=== PATIENT | male | born 1960 | race Caucasian/White ===

== ENCOUNTER 2023-07-10 04:32 | Day surgery (SDC) | payer OTHER ==
[2023-07-04 12:51] VITALS: BMI 24.4
[2023-07-10] MEDS ORDERED: SIMETHICONE 40 MG/0.6 ML BOTTLE ONE (07:57)
[2023-07-10] MEDS ORDERED: EPINEPHrine 1:10,000 (P-F SYR) 1 MG/10 ML DISP.SYRIN SQ ONE (08:45)
[2023-07-10] MEDS ORDERED: EPINEPHrine 1:10,000 (P-F SYR) 1 MG/10 ML DISP.SYRIN IVPUSH ONE (08:45)
[2023-07-10 09:22] VITALS: RESP 18; TEMP 97.9
[2023-07-10 10:04] VITALS: BP 102/65; PULSE 61
== END 2023-07-10 09:55 | disposition home or self-care (01) ==
LOC: JASU-ENDO 04:32
PROVIDERS: ATTEND Internal Medicine Gastroenterology
PROC: 0DBL8ZX Excision of Transverse Colon, Via Natural or Artificial Opening Endoscopic, Diagnostic (ICD-10-PCS; 2023-07-10)
PROC: 0DBN8ZX Excision of Sigmoid Colon, Via Natural or Artificial Opening Endoscopic, Diagnostic (ICD-10-PCS; 2023-07-10)
PROC: 0DBQ8ZX Excision of Anus, Via Natural or Artificial Opening Endoscopic, Diagnostic (ICD-10-PCS; principal; 2023-07-10 08:00)
DX: K57.90 Diverticulosis of intestine, part unspecified, without perforation or abscess without bleeding (principal); D12.3 Benign neoplasm of transverse colon; K64.8 Other hemorrhoids; K64.4 Residual hemorrhoidal skin tags
CPT/HCPCS: 88305-TC

== ENCOUNTER 2023-10-08 04:52 | Inpatient (IN) | payer OTHER ==
[2023-10-04 10:13] VITALS: BMI 25.6
[2023-10-08] MEDS ORDERED: ceFAZolin SODIUM 1 GM VIAL ONE (06:51)
[2023-10-08] MEDS ORDERED: INDOCYANINE GREEN 25 MG/10 ML VIAL IVPUSH ONE (07:10)
[2023-10-08] MEDS ORDERED: BUPIVACAINE HCL/PF 0.25% (2.5MG/ML) 10 ML VIAL ONE (07:11)
[2023-10-08] MEDS ORDERED: cefOXitin SODIUM 2 GM VIAL (RESTRICTED TO ID) IVPB ONE (07:11)
[2023-10-08] MEDS ORDERED: HEPARIN NA (PORCINE) 5,000 UNITS/ML 1ML VIAL ONE (07:11)
[2023-10-08] MEDS ORDERED: ROCURONIUM BROMIDE 50 MG/5 ML SYRINGE ONE ×3 (08:05→13:33)
[2023-10-08] MEDS ORDERED: MIDAZOLAM HCL 2 MG/2 ML SINGLE DOSE VIAL ONE (08:05)
[2023-10-08] MEDS ORDERED: PROPOFOL 20 ML ONE ×2 (08:05→13:32)
[2023-10-08] MEDS ORDERED: FENTANYL CITRATE/PF 50 MCG/ML VIAL ONE ×6 (08:05→18:25)
[2023-10-08] MEDS: cefOXitin SODIUM 2 GM VIAL (RESTRICTED TO ID) IVPB ONE (08:35)
[2023-10-08] MEDS: INDOCYANINE GREEN 25 MG/10 ML VIAL IVPUSH ONE (08:43)
[2023-10-08] MEDS: BUPIVACAINE HCL/PF 0.25% (2.5MG/ML) 10 ML VIAL IJ ONE (09:17)
[2023-10-08] MEDS ORDERED: HYDROmorphone HCl 2 MG/ML VIAL ONE (15:35)
[2023-10-08] MEDS ORDERED: MEPERIDINE HCL 25 MG/ML VIAL ONE (16:37)
[2023-10-08] MEDS: MEPERIDINE HCL 25 MG/ML VIAL IVPUSH ONE (16:55)
[2023-10-08] MEDS: ACETAMINOPHEN 1000 MG/100 ML BAG IVPB SCH (17:26)
[2023-10-08] MEDS: LACTATED RINGERS SOLUTION 1,000 ML IV SCH (17:47)
[2023-10-08] MEDS: CEFAZOLIN SODIUM 2 GM in DEXTROSE 5%-WATER 100 ML IVPB ONE (17:48)
[2023-10-08] MEDS ORDERED: PIPERACILLIN/TAZOB 3.375 GM 3.375 GM in DEXTROSE 5%-WATER - 50 ML IVPB SCH (20:00)
[2023-10-08] MEDS: PIPERACILLIN/TAZOB 3.375 GM 3.375 GM in DEXTROSE 5%-WATER - 50 ML IVPB SCH (21:08)
[2023-10-08] MEDS: oxyCODONE HCL 5 MG TABLET PO PRN (21:14)
[2023-10-08] MEDS: ONDANSETRON 4 MG/2 ML VIAL IVPUSH ONE (22:27)
[2023-10-08] MEDS: KETOROLAC TROMETHAMINE 30 MG/1 ML VIAL IVPUSH PRN (23:01)
[2023-10-09] MEDS: oxyCODONE HCL 5 MG TABLET PO PRN (01:15)
[2023-10-09 08:19] LABS: HEMATOCRIT 36.5 % (35.4-49); HEMOGLOBIN 12.9 GM/dL (11.7-16.9); MCH 31.3 pg (25.7-33.7); MCHC 35.3 g/dl (32.0-35.9); MEAN CELL VOLUME 88.7 fl (80-96); MEAN PLT VOLUME 7.6 fl (7.5-11.1); PLATELET COUNT 143 10^3/uL (134-434); RBC 4.11 M/mm3 (4.00-5.60); RDW 12.6 % (11.9-15.9); WHITE BLOOD COUNT 9.2 K/mm3 (4.0-10.0)
[2023-10-09 09:01] LABS: POTASSIUM 3.6 mmol/L (3.5-5.1)
[2023-10-09 09:03] LABS: BLOOD UREA NITROGEN 11.6 mg/dL (7-18)
[2023-10-09 09:04] LABS: CALCIUM 7.8 mg/dL (8.5-10.1)
[2023-10-09 09:05] LABS: MAGNESIUM 1.7 mg/dL (1.8-2.4)
[2023-10-09 09:07] LABS: CREATININE 1.2 mg/dL (0.55-1.3)
[2023-10-09] MEDS: BACLOFEN 10 MG TABLET (FP) PO ONE (09:17)
[2023-10-09 09:27] LABS: ANISOCYTOSIS 2+; MACROCYTOSIS 0
[2023-10-09] MEDS: LIDOCAINE 4% PATCH TP SCH (10:53)
[2023-10-09] MEDS: MAGNESIUM SULF 50% (8.12 MEQ/2 ML-1 GM VIAL) IVPB ONE (16:10)
[2023-10-09] MEDS: MAGNESIUM 1GM/D5W 100ML - 100 ML IVPB IVPB ONE (16:10)
[2023-10-09] MEDS: KETOROLAC TROMETHAMINE 30 MG/1 ML VIAL IVPUSH PRN (17:44)
[2023-10-09] MEDS: ACETAMINOPHEN 325 MG TABLET (FP) PO SCH (20:58)
[2023-10-09] MEDS: PIPERACILLIN/TAZOB 3.375 GM 3.375 GM in DEXTROSE 5%-WATER - 50 ML IVPB SCH (20:59)
[2023-10-09] MEDS: LIDOCAINE PATCH REMOVAL MC SCH (21:59)
[2023-10-09] MEDS ORDERED: PIPERACILLIN/TAZOB 3.375 GM 3.375 GM in DEXTROSE 5%-WATER - 50 ML IVPB SCH (23:00)
[2023-10-10 08:31] LABS: BASO % 0.4 % (0-2.0); EOS % 0.9 % (0-4.5); HEMATOCRIT 36.2 % (35.4-49); HEMOGLOBIN 12.3 GM/dL (11.7-16.9); LYMPH % 12.7 % (8-40); MCH 30.5 pg (25.7-33.7); MEAN CELL VOLUME 89.6 fl (80-96); MEAN PLT VOLUME 7.8 fl (7.5-11.1); MONO % 4.5 % (3.8-10.2); NEUT % 81.5 % (42.8-82.8); PLATELET COUNT 126 10^3/uL (134-434); RBC 4.04 M/mm3 (4.00-5.60); RDW 12.8 % (11.9-15.9); WHITE BLOOD COUNT 8.9 K/mm3 (4.0-10.0)
[2023-10-10 08:51] LABS: POTASSIUM 3.6 mmol/L (3.5-5.1)
[2023-10-10 08:54] LABS: ALBUMIN 3.2 g/dl (3.4-5.0); BLOOD UREA NITROGEN 7.9 mg/dL (7-18); CALCIUM 8.2 mg/dL (8.5-10.1); MAGNESIUM 2.1 mg/dL (1.8-2.4)
[2023-10-10 08:59] LABS: BILIRUBIN,TOTAL 1.2 mg/dL (0.2-1); TOT PROT 5.9 g/dl (6.4-8.2)
[2023-10-10] MEDS: ENALAPRIL MALEATE 5 MG TABLET PO SCH (09:00)
[2023-10-10 09:44] VITALS: RESP 18
[2023-10-10] MEDS: ENOXAPARIN NA (PORCINE) 40 MG/0.4 ML DISP.SYRIN SQ SCH (09:59)
[2023-10-10] MEDS: ACETAMINOPHEN 500 MG TABLET (FP) PO SCH (10:02)
[2023-10-10] MEDS ORDERED: METHOCARBAMOL 500 MG TABLET PO PRN (13:18)
[2023-10-10] MEDS: IBUPROFEN 600 MG TABLET (FP) PO SCH (15:07)
[2023-10-11 14:24] VITALS: BP 134/96; PULSE 64; TEMP 97.3
== END 2023-10-11 15:44 | disposition home or self-care (01) | DRG 331 ==
LOC: J2C 04:52 → J8W 19:37
PROVIDERS: ADMIT Internal Medicine; ATTEND Internal Medicine
PROC: 0T9B80Z Drainage of Bladder with Drainage Device, Via Natural or Artificial Opening Endoscopic (ICD-10-PCS; 2023-10-08)
PROC: 8E0W0CZ Robotic Assisted Procedure of Trunk Region, Open Approach (ICD-10-PCS; 2023-10-08)
PROC: 0DTN0ZZ Resection of Sigmoid Colon, Open Approach (ICD-10-PCS; principal; 2023-10-08 08:00)
PROC: 0T9870Z Drainage of Bilateral Ureters with Drainage Device, Via Natural or Artificial Opening (ICD-10-PCS; 2023-10-08 08:00)
DX: K57.32 Diverticulitis of large intestine without perforation or abscess without bleeding (principal); I10 Essential (primary) hypertension; E83.42 Hypomagnesemia; M54.6 Pain in thoracic spine
CPT/HCPCS: 36415; 80048; 80053; 83735; 84100; 85025; 86140; 88307-TC; 94010; 94760; J0131; J0475; J1644

== ENCOUNTER 2023-11-15 10:25 | Inpatient (IN) | payer OTHER ==
[2023-11-15 10:46] VITALS: BMI 25.4
[2023-11-15 11:27] LABS: BASO % 0.3 % (0-2.0); EOS % 0.1 % (0-4.5); HEMATOCRIT 39.4 % (35.4-49); HEMOGLOBIN 13.5 GM/dL (11.7-16.9); LYMPH % 6.3 % (8-40); MCH 30.1 pg (25.7-33.7); MCHC 34.3 g/dl (32.0-35.9); MEAN CELL VOLUME 87.9 fl (80-96); MEAN PLT VOLUME 7.6 fl (7.5-11.1); MONO % 7.4 % (3.8-10.2); NEUT % 85.9 % (42.8-82.8); PLATELET COUNT 177 10^3/uL (134-434); RBC 4.48 M/mm3 (4.00-5.60); RDW 12.5 % (11.9-15.9); WHITE BLOOD COUNT 14.6 K/mm3 (4.0-10.0)
[2023-11-15 11:52] LABS: POTASSIUM 4.4 mmol/L (3.5-5.1)
[2023-11-15 11:55] LABS: CALCIUM 9.1 mg/dL (8.5-10.1)
[2023-11-15 11:56] LABS: ALBUMIN 3.6 g/dl (3.4-5.0)
[2023-11-15 11:59] LABS: BILIRUBIN,TOTAL 1.8 mg/dL (0.2-1); CREATININE 1.2 mg/dL (0.55-1.3)
[2023-11-15 12:01] LABS: TOT PROT 6.9 g/dl (6.4-8.2)
[2023-11-15 12:24] LABS: EPI CELLS 8 /uL (0-25.1); HYALINE CASTS 2 /uL (0-3.1); PH,URINE 5.5 (5.0-8.0); URINE APPEARANCE CLEAR; URINE BILIRUBIN 1+ (NEGATIVE); URINE COLOR DK YELLOW; URINE GLUCOSE (UA) NEGATIVE (NEGATIVE); URINE KETONE TRACE (NEGATIVE); URINE LEUK ESTERASE 1+ (NEGATIVE); URINE NITRITE POSITIVE (NEGATIVE); URINE PROTEIN 2+ (NEGATIVE); URINE RBC 21 /uL (0-23.9); URINE WBC 12 /uL (0-25.8)
[2023-11-15 12:29] LABS: INR 0.98 (0.83-1.09); PROTHROMBIN TIME (PATIENT) 11.3 SEC (9.7-13.0)
[2023-11-15 13:06] LABS: LACTIC ACID 2.2 mmol/L (0.4-2.0)
[2023-11-15 13:07] LABS: URINE BACTERIA 6 /uL (0-1359)
[2023-11-15] MEDS ORDERED: CEFTRIAXONE 1 GM/50 ML BAG ONE (14:40)
[2023-11-15] MEDS ORDERED: ACETAMINOPHEN INJECTION 100 ML IVPB ONE (14:40)
[2023-11-15] MEDS: SODIUM CHLORIDE 1,000 ML IV STA (14:57)
[2023-11-15] MEDS: ACETAMINOPHEN 1000 MG/100 ML BAG IVPB ONE (15:23)
[2023-11-15] MEDS ORDERED: PIPERACILLIN/TAZOB 3.375 GM 3.375 GM/50 ML BAG IVPB ONE (15:27)
[2023-11-15] MEDS: PIPERACILLIN/TAZOB 3.375 GM 3.375 GM in DEXTROSE 5%-WATER - 50 ML IVPB ONE (15:56)
[2023-11-15] MEDS: ACETAMINOPHEN 325 MG TABLET (FP) PO ONE (20:08)
[2023-11-15] MEDS ORDERED: PIPERACILLIN/TAZOB 3.375 GM 3.375 GM in DEXTROSE 5%-WATER - 50 ML IVPB SCH (22:00)
[2023-11-15] MEDS: PIPERACILLIN/TAZOB 3.375 GM 3.375 GM in DEXTROSE 5%-WATER - 50 ML IVPB SCH (22:03)
[2023-11-16] MEDS: ACETAMINOPHEN 325 MG TABLET (FP) PO ONE (02:56)
[2023-11-16] MEDS: PNEUMOC 20-VAL CONJ-DIP CRM/PF 0.5 ML SYRINGE IM ONE (07:37)
[2023-11-16] MEDS ORDERED: ACETAMINOPHEN 325 MG TABLET (FP) PO PRN ×2 (09:34→16:40)
[2023-11-16] MEDS: ENALAPRIL MALEATE 5 MG TABLET PO SCH (09:37)
[2023-11-16] MEDS: ACETAMINOPHEN 325 MG TABLET (FP) PO PRN (10:57)
[2023-11-16 11:00] LABS: BASO % 0.3 % (0-2.0); EOS % 0.4 % (0-4.5); HEMATOCRIT 36.2 % (35.4-49); HEMOGLOBIN 12.7 GM/dL (11.7-16.9); MCH 30.5 pg (25.7-33.7); MEAN CELL VOLUME 87.1 fl (80-96); MEAN PLT VOLUME 7.2 fl (7.5-11.1); MONO % 7.7 % (3.8-10.2); NEUT % 83.6 % (42.8-82.8); PLATELET COUNT 176 10^3/uL (134-434); RBC 4.16 M/mm3 (4.00-5.60); RDW 12.2 % (11.9-15.9); WHITE BLOOD COUNT 10.5 K/mm3 (4.0-10.0)
[2023-11-16 11:19] LABS: POTASSIUM 3.9 mmol/L (3.5-5.1)
[2023-11-16 11:21] LABS: CALCIUM 8.4 mg/dL (8.5-10.1)
[2023-11-16 11:22] LABS: ALBUMIN 3.3 g/dl (3.4-5.0); BLOOD UREA NITROGEN 12.4 mg/dL (7-18)
[2023-11-16 11:26] LABS: TOT PROT 6.7 g/dl (6.4-8.2)
[2023-11-16 11:27] LABS: BILIRUBIN,TOTAL 1.4 mg/dL (0.2-1)
[2023-11-16] MEDS ORDERED: ONDANSETRON 4 MG/2 ML VIAL IVPUSH PRN ×2 (15:54→16:40)
[2023-11-16] MEDS ORDERED: LACTATED RINGERS SOLUTION 1,000 ML IV SCH ×2 (16:00→16:40)
[2023-11-16] MEDS ORDERED: MIDAZOLAM HCL 2 MG/2 ML SINGLE DOSE VIAL ONE (16:01)
[2023-11-16] MEDS ORDERED: FENTANYL CITRATE/PF 50 MCG/ML VIAL ONE ×2 (16:01→16:05)
[2023-11-16] MEDS: ceFAZolin SODIUM 1 GM VIAL IVPB ONE (16:08)
[2023-11-16] MEDS: IOVERSOL 320 MG/ML ML IV ONE ×2 (16:20)
[2023-11-16] MEDS: ACETAMINOPHEN 1000 MG/100 ML BAG IVPB ONE (16:45)
[2023-11-16] MEDS ORDERED: PIPERACILLIN/TAZOB 3.375 GM 3.375 GM in DEXTROSE 5%-WATER - 50 ML IVPB SCH (18:00)
[2023-11-16] MEDS: PIPERACILLIN/TAZOB 3.375 GM 3.375 GM in DEXTROSE 5%-WATER - 50 ML IVPB SCH (18:03)
[2023-11-17 07:35] VITALS: PULSE 60; RESP 18
[2023-11-17 09:05] LABS: BASO % 0.2 % (0-2.0); EOS % 0.1 % (0-4.5); HEMATOCRIT 34.1 % (35.4-49); HEMOGLOBIN 11.6 GM/dL (11.7-16.9); LYMPH % 9.6 % (8-40); MCH 30.2 pg (25.7-33.7); MCHC 34.1 g/dl (32.0-35.9); MEAN CELL VOLUME 88.7 fl (80-96); MONO % 5.2 % (3.8-10.2); NEUT % 84.9 % (42.8-82.8); PLATELET COUNT 194 10^3/uL (134-434); RBC 3.84 M/mm3 (4.00-5.60); RDW 12.3 % (11.9-15.9); WHITE BLOOD COUNT 7.1 K/mm3 (4.0-10.0)
[2023-11-17 09:23] LABS: POTASSIUM 4.3 mmol/L (3.5-5.1)
[2023-11-17 09:25] LABS: CALCIUM 8.4 mg/dL (8.5-10.1)
[2023-11-17 09:26] LABS: BLOOD UREA NITROGEN 15.4 mg/dL (7-18)
[2023-11-17 09:29] LABS: CREATININE 0.9 mg/dL (0.55-1.3)
[2023-11-17 09:30] LABS: BILIRUBIN,TOTAL 0.6 mg/dL (0.2-1); TOT PROT 6.3 g/dl (6.4-8.2)
[2023-11-17 09:40] VITALS: BP 121/73; TEMP 97.9
[2023-11-17] MEDS: ENALAPRIL MALEATE 5 MG TABLET PO SCH (09:41)
== END 2023-11-17 13:30 | disposition home or self-care (01) | DRG 669 ==
LOC: JER 10:25 → JERBED 15:04 → J5S 17:31
PROVIDERS: ADMIT Internal Medicine
PROC: BT00YZZ Plain Radiography of Bladder using Other Contrast (ICD-10-PCS; 2023-11-16)
PROC: 0T5B8ZZ Destruction of Bladder, Via Natural or Artificial Opening Endoscopic (ICD-10-PCS; principal; 2023-11-16 16:00)
PROC: 0TBB3ZX Excision of Bladder, Percutaneous Approach, Diagnostic (ICD-10-PCS; 2023-11-16 16:00)
DX: N39.0 Urinary tract infection, site not specified (principal); E87.1 Hypo-osmolality and hyponatremia; N32.1 Vesicointestinal fistula; I10 Essential (primary) hypertension; N32.89 Other specified disorders of bladder
CPT/HCPCS: 36415; 71046-TC-FY; 74177-TC; 76000-TC-FY; 80053; 81003; 83605; 85025; 85610; 85730; 87040; 87086; 88305-TC; 93005; 93010; 94760; 99285-25; J0131; Q9967

== ENCOUNTER 2024-09-01 05:29 | Day surgery (SDC) | payer OTHER ==
[2024-08-28 10:17] VITALS: BMI 26.4
[2024-09-01] MEDS ORDERED: HEPARIN NA (PORCINE) 5,000 UNITS/ML 1ML VIAL ONE (12:22)
[2024-09-01] MEDS ORDERED: MIDAZOLAM HCL 2 MG/2 ML SINGLE DOSE VIAL ONE (12:32)
[2024-09-01] MEDS ORDERED: SUGAMMADEX SODIUM 200 MG/2 ML VIAL ONE (12:41)
[2024-09-01] MEDS ORDERED: ROCURONIUM BROMIDE 50 MG/5 ML SYRINGE ONE ×4 (12:55→14:50)
[2024-09-01] MEDS: cefOXitin SODIUM 1 GM VIAL (RESTRICTED TO ID) IVPB ONE (13:03)
[2024-09-01] MEDS ORDERED: INDOCYANINE GREEN 25 MG/10 ML VIAL IVPUSH ONE (13:48)
[2024-09-01] MEDS ORDERED: cefOXitin SODIUM 2 GM VIAL (RESTRICTED TO ID) IVPB ONE (16:03)
[2024-09-01] MEDS: BUPIVACAINE HCL/PF 0.25% (2.5MG/ML) 10 ML VIAL IJ ONE ×2 (16:44)
[2024-09-01] MEDS ORDERED: LACTATED RINGERS SOLUTION 1,000 ML IV SCH (17:15)
[2024-09-01] MEDS ORDERED: oxyCODONE HCL 5 MG TABLET PO PRN (17:16)
[2024-09-01] MEDS ORDERED: AMOX TR/POT CLAV 500MG/125MG TABLETS (FP) PO SCH (17:30)
[2024-09-01] MEDS: ACETAMINOPHEN 325 MG TABLET (FP) PO SCH (18:03)
[2024-09-01] MEDS: AMOX TR/POT CLAV 500MG/125MG TABLETS (FP) PO SCH (21:54)
[2024-09-02 07:56] LABS: BASO % 0.3 % (0-2.0); EOS % 0.2 % (0-4.5); HEMATOCRIT 34.8 % (35.4-49); HEMOGLOBIN 11.9 GM/dL (11.7-16.9); LYMPH % 12.6 % (8-40); MCH 30.8 pg (25.7-33.7); MCHC 34.1 g/dl (32.0-35.9); MEAN CELL VOLUME 90.3 fl (80-96); MEAN PLT VOLUME 8.2 fl (7.5-11.1); MONO % 6.8 % (3.8-10.2); NEUT % 80.1 % (42.8-82.8); PLATELET COUNT 147 10^3/uL (134-434); RBC 3.86 M/mm3 (4.00-5.60)
[2024-09-02 08:03] LABS: POTASSIUM 4.6 mmol/L (3.5-5.1)
[2024-09-02 08:38] LABS: CALCIUM 7.9 mg/dL (8.5-10.1)
[2024-09-02 08:39] LABS: BLOOD UREA NITROGEN 14.8 mg/dL (7-18); MAGNESIUM 2.2 mg/dL (1.8-2.4)
[2024-09-02 08:42] LABS: CREATININE 1.1 mg/dL (0.55-1.3)
[2024-09-02 08:43] LABS: PHOSPHOROUS 2.8 mg/dL (2.5-4.9)
[2024-09-02] MEDS: ENALAPRIL MALEATE 5 MG TABLET PO SCH (09:19)
[2024-09-02] MEDS: TAMSULOSIN HCL 0.4 MG CAP PO SCH (09:19)
[2024-09-02 10:05] VITALS: BP 122/74; PULSE 82; RESP 17; TEMP 99
== END 2024-09-02 13:52 | disposition home or self-care (01) ==
LOC: SUATTDRO 05:29 → JASU-SURG 05:29 → JASUSAT 05:29 → J8W 18:48 → JASUSAT 09-02 13:52
PROVIDERS: ATTEND Nurse Practitioner Family
PROC: 0T9 Urinary System, Drainage (ICD-10-PCS; 2024-09-01)
PROC: 0DJD4ZZ Inspection of Lower Intestinal Tract, Percutaneous Endoscopic Approach (ICD-10-PCS; 2024-09-01)
PROC: 8E0W4CZ Robotic Assisted Procedure of Trunk Region, Percutaneous Endoscopic Approach (ICD-10-PCS; 2024-09-01)
PROC: 0TJB8ZZ Inspection of Bladder, Via Natural or Artificial Opening Endoscopic (ICD-10-PCS; 2024-09-01)
PROC: 0DJD8ZZ Inspection of Lower Intestinal Tract, Via Natural or Artificial Opening Endoscopic (ICD-10-PCS; principal; 2024-09-01 13:30)
DX: N39.0 Urinary tract infection, site not specified (principal); N32.2 Vesical fistula, not elsewhere classified
CPT/HCPCS: 45330; 49320; 51999; 52000; S2900; 36415; 80048; 83735; 84100; 85025; 86850; 86900; 86901; 88305-TC; 94010; 94760; J1644